=== PATIENT | female | born 1965 | race Caucasian/White ===

== ENCOUNTER → 2016-09-12 | Outpatient (CLI) | payer OTHER ==
[~2016-09-12] MED LIST: CHOL20009 PO; CRY28 PO; ESOM20CA PO; LSN/10125 PO; MRLP17X PO; [UNRECOGNIZED DRUG - CODE] TOP
== END | disposition home or self-care (01) ==
LOC: C.PAPS 10:26
PROVIDERS: ATTEND Obstetrics & Gynecology
DX: Z12.4 Encounter for screening for malignant neoplasm of cervix (principal)

== ENCOUNTER 2020-11-28 14:09 | Observation (INO) ==
[2020-11-28] MEDS ORDERED: ACETAMINOPHEN 325 MG TAB PO STA (15:03)
[2020-11-28] MEDS ORDERED: SODIUM CHLORIDE 0.9% 1000ML 1,000 ML IV ONE ×2 (15:03→17:36)
[2020-11-28] MEDS ORDERED: cefTRIAXone SODIUM 2,000 MG/70 ML BAG IV STA (15:05)
--- NOTE | 2020-11-28 15:15 | Emergency Department Note ---
History of Present Illness General Chief complaint: Fever Stated complaint: FEVER Time Seen by Provider: 11/28/20 14:50 Source: patient Mode of arrival: ambulatory Limitations: no limitations History of Present Illness Maximum Pain Intensity: 8 This patient is a 55-year-old previous healthy female comes in with a fever. She was out kayaking on and was in this little bit of the Sunday did not feel well. She is gotten worse since then she feels achy she had a temperature that started on Sunday up to 102. She has a headache when she has a fever her main complaint is severe low back pain it seems like it is bilateral but may be worse on the right. Denies dysuria or hematuria she has had some frequency at times. No cough. No tick bite or rash. She has been outside a lot however. She has had the Covid vaccine. She does feel shaky and has chills at times. No abdominal pain no neck pain or stiffness. She had not taken Tylenol today when she has Tylenol and the fever break she does feel better. Home Medications Medication Instructions Recorded Confirmed Type furosemide 20 mg tablet 20 mg PO QAM PRN 12/16/18 11/28/20 History multivitamin 1 tab PO QAM 11/28/20 11/28/20 History Allergies Allergy/AdvReac Type Severity Reaction Status Date / Time No Known Allergies Allergy Verified 11/28/20 16:40 Past Med/Surg History Medical History Atypical squamous cells cannot exclude high grade squamous intraepithelial lesion on cytologic smear of cervix (ASC-H) Back problem Benign neoplasm of cecum Endometriosis of pelvic peritoneum (10/25/10) Endometriosis of uterus (10/25/10) Female pelvic inflammatory disease (10/25/10) Pelvic pain Personal history of cervical dysplasia Vaginal cyst Surgical History History of colposcopy with cervical biopsy History of foot surgery History of loop electrical excision procedure (LEEP) History of oral surgery tooth extraction Family History Other No known problems Social History Smoking Status: Never smoker Preferred Language: Ecuadorean Feels Safe at Home: Yes Review of Systems A total of 10 systems reviewed and were otherwise negative Physical Exam Vital Signs Vital Signs - 24 hr 11/28/20 14:26 11/28/20 15:20 11/28/20 15:40 Temperature 39.2 C H Temperature Source Oral Pulse Rate 108 H 81 Pulse Rate from SpO2 Sensor 82 Respiratory Rate 20 14 Respiratory Effort / Characteristics Non-Labored Spontaneous Non-Labored Spontaneous Respiratory Depth Normal Respiratory Pattern Regular Blood Pressure 118/84 136/90 Blood Pressure Mean 95 105 Pulse Oximetry 97 98 99 Oxygen Delivery Method Room Air Room Air Sepsis Recent Fever Within 48 Hours No Sepsis New/Unexplained Change in Mental Status No Sepsis Action Taken by Nursing No Action Required 11/28/20 16:00 11/28/20 17:20 Temperature 39.4 C H Temperature Source Oral Pulse Rate 82 Pulse Rate from SpO2 Sensor 82 Respiratory Rate 15 Respiratory Effort / Characteristics Respiratory Depth Respiratory Pattern Blood Pressure 138/84 Blood Pressure Mean 102 Pulse Oximetry 100 Oxygen Delivery Method Sepsis Recent Fever Within 48 Hours Sepsis New/Unexplained Change in Mental Status Sepsis Action Taken by Nursing General: Well developed well nourished nontoxic mildly hard of hearing middle- age female who is otherwise in no acute distress, breathing comfortably on room air. Normal speech HEENT: Normal cephalic atraumatic. Pupils are equal round and reactive to light. Extraocular movements are intact. Oropharynx is pink with moist mucous membranes. No swelling of the mouth lips or tongue. Neck: Supple with a midline trachea. No meningeal signs or stiffness, no JVD or bruits. No Stridor. Chest: Clear to auscultation bilaterally. No wheezes or rhonchi. No increased work of breathing. Heart: Regular rate and rhythm without murmurs or gallops. Abdomen: Soft nontender, nondistended without rebound guarding or rigidity. Extremities: No cyanosis clubbing or edema. No calf tenderness or assymetry Spine/Back. Non tender to palpation. No CVA tenderness Skin: Good turgor without rashes. Neurologic exam: Cranial nerves two through 12 are intact. Motor and sensation are intact and symmetrical throughout. Course Administered Medications Discontinued Medications Acetaminophen (Acetaminophen 325 Mg Tab) 650 mg PO NOW STA Stop: 11/28/20 15:04 Last Admin: 11/28/20 15:36 Dose: 650 mg Documented by: [id number] Sodium Chloride (Nss 1000ml) 1,000 mls @ 999 mls/hr IV .Q1H1M ONE Stop: 11/28/20 16:03 Last Infusion: 11/28/20 17:26 Dose: 0 mls/hr Documented by: [id number] Admin: 11/28/20 15:36 Dose: 999 mls/hr Documented by: [id number] Ceftriaxone Sodium (Rocephin) 2,000 mg in 70 mls @ 140 mls/hr IV NOW STA Stop: 11/28/20 15:34 Last Infusion: 11/28/20 16:05 Dose: 0 mls/hr Documented by: [id number] Admin: 11/28/20 15:36 Dose: 140 mls/hr Documented by: [id number] Medical Decision Making Differential Diagnosis Sepsis, pneumonia, Covid, UTI, pyelonephritis, intra-abdominal process, tickborne illness, electrolyte or metabolic abnormality Medical Records Attestation: I reviewed the patient's medical records. Home Medications Current Medication List: was personally reviewed by me Laboratory Data Attestation: I reviewed the patient's lab results. Result diagrams: 11/28/20 15:20 11/28/20 15:20 Lab Results 11/28/20 11/28/20 11/28/20 Range/Units 15:20 15:20 15:20 WBC 4.58 L (4.8-10.8) K/uL RBC 4.59 (4.2-5.4) M/uL Hgb 13.6 (12.0-16.0) g/dL Hct 39.9 (37-47) % MCV 86.9 (80-100) fL MCH 29.6 (25-34) pg MCHC 34.1 (32-36) g/dL RDW Std Deviation 40.4 (36.4-46.3) fL RDW Coeff of Rebeca 12.6 (11.5-14.5) % Plt Count 147 (130-400) K/uL MPV 10.9 H (7.4-10.4) fL Immature Gran % (Auto) 0.2 % Neut % (Auto) 78.2 % Lymph % (Auto) 13.1 % Mccone % (Auto) 8.3 % Eos % (Auto) 0.0 % Baso % (Auto) 0.2 % Neut # (Auto) 3.58 (1.4-6.5) K/uL Lymph # (Auto) 0.60 L (1.2-3.4) K/uL Mccone # (Auto) 0.38 (0.11-0.59) K/uL Eos # (Auto) 0.00 (0-0.5) K/uL Baso # (Auto) 0.01 (0-0.2) K/uL Immature Gran # (Auto) 0.01 (0.00-0.02) K/uL PT 10.7 (9.0-12.0) Seconds INR 1.1 (0.9-1.1) APTT 29.6 (21.0-31.0) Seconds PTT Ratio 1.1 Sodium 138 (136-145) mmol/L Potassium 3.8 (3.5-5.1) mmol/L Chloride 104 (98-107) mmol/L Carbon Dioxide 24 (21-32) mmol/L Anion Gap 9.0 (3-11) BUN 11 (7-18) mg/dl Creatinine 0.75 (0.6-1.2) mg/dl Est Cr Clr Drug Dosing 84.9 ml/min Est GFR ( Amer) 103.3 ml/min Est GFR (Non-Af Amer) 89.1 ml/min BUN/Creatinine Ratio 14.5 (10-20) Glucose 111 H (70-99) mg/dl Lactate (0.4-2.0) mmol/L Calcium 9.0 (8.5-10.1) mg/dl Magnesium 1.9 (1.8-2.4) mg/dl Total Bilirubin 1.0 (0.2-1) mg/dl AST 34 (15-37) U/L ALT 50 (12-78) U/L Alkaline Phosphatase 75 (45-117) U/L Total Protein 7.4 (6.4-8.2) gm/dl Albumin 3.7 (3.4-5.0) gm/dl Globulin 3.7 (2.5-4.0) gm/dl Albumin/Globulin Ratio 1.0 (0.9-2) Urine Color Urine Appearance (Clear) Urine pH (4.5-7.5) Ur Specific [place] (1.000-1.030) Urine Protein (Negative) Urine Glucose (UA) (Negative) Urine Ketones (Negative) Urine Blood (Negative) Urine Nitrite (Negative) Urine Bilirubin (Negative) Urine Urobilinogen (Negative) Ur Leukocyte Esterase (Negative) Urine WBC (Auto) (0-5) /hpf Urine RBC (Auto) (0-4) /hpf U Hyaline Cast (Auto) (0-5) /lpf U Epithel Cells (Auto) (0-5) /lpf Urine Bacteria (Auto) (Negative) Anaplasma Smear See Comment Lyme Disease IgG Ab (Negative) Lyme Disease IgM Ab (Negative) COVID-19 Eval Order SARS-CoV-2 (PCR) (Negative) 11/28/20 11/28/20 11/28/20 Range/Units 15:20 15:25 15:25 WBC (4.8-10.8) K/uL RBC (4.2-5.4) M/uL Hgb (12.0-16.0) g/dL Hct (37-47) % MCV (80-100) fL MCH (25-34) pg MCHC (32-36) g/dL RDW Std Deviation (36.4-46.3) fL RDW Coeff of Rebeca (11.5-14.5) % Plt Count (130-400) K/uL MPV (7.4-10.4) fL Immature Gran % (Auto) % Neut % (Auto) % Lymph % (Auto) % Mccone % (Auto) % Eos % (Auto) % Baso % (Auto) % Neut # (Auto) (1.4-6.5) K/uL Lymph # (Auto) (1.2-3.4) K/uL Mccone # (Auto) (0.11-0.59) K/uL Eos # (Auto) (0-0.5) K/uL Baso # (Auto) (0-0.2) K/uL Immature Gran # (Auto) (0.00-0.02) K/uL PT (9.0-12.0) Seconds INR (0.9-1.1) APTT (21.0-31.0) Seconds PTT Ratio Sodium (136-145) mmol/L Potassium (3.5-5.1) mmol/L Chloride (98-107) mmol/L Carbon Dioxide (21-32) mmol/L Anion Gap (3-11) BUN (7-18) mg/dl Creatinine (0.6-1.2) mg/dl Est Cr Clr Drug Dosing ml/min Est GFR ( Amer) ml/min Est GFR (Non-Af Amer) ml/min BUN/Creatinine Ratio (10-20) Glucose (70-99) mg/dl Lactate 0.7 (0.4-2.0) mmol/L Calcium (8.5-10.1) mg/dl Magnesium (1.8-2.4) mg/dl Total Bilirubin (0.2-1) mg/dl AST (15-37) U/L ALT (12-78) U/L Alkaline Phosphatase (45-117) U/L Total Protein (6.4-8.2) gm/dl Albumin (3.4-5.0) gm/dl Globulin (2.5-4.0) gm/dl Albumin/Globulin Ratio (0.9-2) Urine Color Dark Yellow Urine Appearance Clear (Clear) Urine pH 5.0 (4.5-7.5) Ur Specific [place] 1.029 (1.000-1.030) Urine Protein Trace H (Negative) Urine Glucose (UA) Negative (Negative) Urine Ketones Trace H (Negative) Urine Blood 1+ H (Negative) Urine Nitrite Negative (Negative) Urine Bilirubin Negative (Negative) Urine Urobilinogen Negative (Negative) Ur Leukocyte Esterase Trace H (Negative) Urine WBC (Auto) 5-10 H (0-5) /hpf Urine RBC (Auto) 0-4 (0-4) /hpf U Hyaline Cast (Auto) 1-5 (0-5) /lpf U Epithel Cells (Auto) >30 H (0-5) /lpf Urine Bacteria (Auto) Negative (Negative) Anaplasma Smear Lyme Disease IgG Ab Negative (Negative) Lyme Disease IgM Ab Negative (Negative) COVID-19 Eval Order SARS-CoV-2 (PCR) (Negative) 11/28/20 11/28/20 Range/Units 15:50 15:50 WBC (4.8-10.8) K/uL RBC (4.2-5.4) M/uL Hgb (12.0-16.0) g/dL Hct (37-47) % MCV (80-100) fL MCH (25-34) pg MCHC (32-36) g/dL RDW Std Deviation (36.4-46.3) fL RDW Coeff of Rebeca (11.5-14.5) % Plt Count (130-400) K/uL MPV (7.4-10.4) fL Immature Gran % (Auto) % Neut % (Auto) % Lymph % (Auto) % Mccone % (Auto) % Eos % (Auto) % Baso % (Auto) % Neut # (Auto) (1.4-6.5) K/uL Lymph # (Auto) (1.2-3.4) K/uL Mccone # (Auto) (0.11-0.59) K/uL Eos # (Auto) (0-0.5) K/uL Baso # (Auto) (0-0.2) K/uL Immature Gran # (Auto) (0.00-0.02) K/uL PT (9.0-12.0) Seconds INR (0.9-1.1) APTT (21.0-31.0) Seconds PTT Ratio Sodium (136-145) mmol/L Potassium (3.5-5.1) mmol/L Chloride (98-107) mmol/L Carbon Dioxide (21-32) mmol/L Anion Gap (3-11) BUN (7-18) mg/dl Creatinine (0.6-1.2) mg/dl Est Cr Clr Drug Dosing ml/min Est GFR ( Amer) ml/min Est GFR (Non-Af Amer) ml/min BUN/Creatinine Ratio (10-20) Glucose (70-99) mg/dl Lactate (0.4-2.0) mmol/L Calcium (8.5-10.1) mg/dl Magnesium (1.8-2.4) mg/dl Total Bilirubin (0.2-1) mg/dl AST (15-37) U/L ALT (12-78) U/L Alkaline Phosphatase (45-117) U/L Total Protein (6.4-8.2) gm/dl Albumin (3.4-5.0) gm/dl Globulin (2.5-4.0) gm/dl Albumin/Globulin Ratio (0.9-2) Urine Color Urine Appearance (Clear) Urine pH (4.5-7.5) Ur Specific [place] (1.000-1.030) Urine Protein (Negative) Urine Glucose (UA) (Negative) Urine Ketones (Negative) Urine Blood (Negative) Urine Nitrite (Negative) Urine Bilirubin (Negative) Urine Urobilinogen (Negative) Ur Leukocyte Esterase (Negative) Urine WBC (Auto) (0-5) /hpf Urine RBC (Auto) (0-4) /hpf U Hyaline Cast (Auto) (0-5) /lpf U Epithel Cells (Auto) (0-5) /lpf Urine Bacteria (Auto) (Negative) Anaplasma Smear Lyme Disease IgG Ab (Negative) Lyme Disease IgM Ab (Negative) COVID-19 Eval Order Covid19 at [facility] SARS-CoV-2 (PCR) NEGATIVE (Negative) Imaging Data Attestation: I personally reviewed and interpreted this imaging study as follows: My Impression: Chest x-rayno acute infiltrate, failure, pneumothorax seen Radiologist's Impression: Chest X-Ray 11/28/20 15:03 XR chest 1V portable CLINICAL HISTORY: SEPSIS COMPARISON STUDY: No previous studies for comparison. FINDINGS: Lung volumes are normal. Lungs are clear. There is no pneumothorax or pleural effusion. Cardiac size is normal. Mediastinal contours are normal. There is no evidence for pulmonary edema. IMPRESSION: No acute cardiopulmonary findings. ACT 112: Negative or not required by law. Electronically signed by: Heladio Kaur M.D. 11/28/2020 3:51 PM Abdomen/Pelvis CT 11/28/20 16:22 CT OF THE ABDOMEN AND PELVIS WITHOUT CONTRAST CLINICAL HISTORY: back pain, fever COMPARISON STUDY: CT of the abdomen and pelvis May 18, 2015. Pelvic ultrasound May 04, 2020. TECHNIQUE: Axial images of the abdomen and pelvis were obtained without IV contrast. Images were reviewed in the axial, sagittal, and coronal planes. Automated exposure control was utilized for the study. A dose lowering technique was utilized adhering to the principles of ALARA. FINDINGS: Lung bases are unremarkable. No renal, ureteral or bladder calculi are present. No hydronephrosis or hydroureter. Size of the spleen is at the upper limits of normal. Evaluation of the remainder of the abdomen and pelvis is suboptimal as unenhanced examination. Hepatic steatosis is noted. A right hepatic lobe hemangioma is similar to CT of May 2015. This is benign. There is no biliary or pancreatic ductal dilatation. There is no peripancreatic or pericholecystic infiltration. No acute fracture is identified within visualized skeletal structures. There is no evidence for acute appendicitis. There is trace fluid within the pelvis. No abscess is present. There is no lymphadenopathy. IMPRESSION: 1. No urinary calculi or hydronephrosis. 2. No acute process within the abdomen or pelvis on unenhanced exam. 3. Hepatic steatosis. ACT 112: Negative or not required by law. Electronically signed by: Heladio Kaur M.D. 11/28/2020 4:55 PM ECG Data Attestation: I personally reviewed and interpreted this ECG as follows: Indication: + other (Sepsis/infection) Rhythm: + normal sinus ECG Intervals/blocks: + Normal QRS, + Normal QT and + Normal CO ECG [place]: + Normal ECG ST segments: + Normal ST segments ECG Findings: no PACs or no PVCs Comparison ECG Date: from (10/12/2010) Change: no significant change MDM Narrative This patient comes in as described above. She was placed on a engine monitor room A4. She is here for treatment evaluation after having a fever and back pain. IV access was established and she was hydrated with IV 2 L normal saline bolus. She was also given Rocephin 2 g IV. Multiple blood testing was obtained. She has no significant elevation of her white count in fact is on the low side. She has no elevation of her lactic acid. She has no significant electrolyte or metabolic abnormalities. She has nothing to suggest liver, gallbladder, or pancreas disease. Her initial anaplasmosis and Lyme testing are negative as well. CAT scan was obtained and there is no acute abnormality seen. Her urinalysis is mildly abnormal but does not suggest a definite UTI. That could potentially still be the source or could be viral. Covid testing was negative. She has a mild headache but she says is nothing like her typical migraines is not severe she looks well she is nontoxic she has no meningeal signs or stiffness I do not feel this is likely meningitis or encephalitis. Despite getting Tylenol 650 mg p.o. here, fever was up so I gave her ibuprofen 400 mg. She has been in the water canoeing and is possibly there could be some sort of infectious etiology from the water. I have consulted [facility] to see her in the ER for admission and observation. Continuous cardiac monitoring. An order was placed in EMR for continuous cardiac monitoring. Upon my evaluation she was noted to be in normal sinus rhythm with a rate of 80 Impression & Plan Sepsis, Fever, Back pain, Lab test negative for COVID-19 virus Discharge Plan Visit Data Chief Complaint: Fever Stated Complaint: FEVER ED Provider: Tomi Mcpherson Discharge Problem: Sepsis, Fever, Back pain, Lab test negative for COVID-19 virus Forms Stand Alone Forms: My [facility] Prescriptions Prescriptions: No Action furosemide 20 mg Tablet 20 mg PO QAM PRN (Reason: Edema) RF: 0 multivitamin Tablet 1 tab PO QAM RF: 0 Referrals Referrals: Anish Ricardo MD [Primary Care Provider] - Discharge Problem: Sepsis Qualifiers: Sepsis type: sepsis due to unspecified organism Sepsis acute organ dysfunction status: unspecified Qualified Code(s): A41.9 - Sepsis, unspecified organism Fever Qualifiers: Fever type: unspecified Qualified Code(s): R50.9 - Fever, unspecified Back pain Qualifiers: Back pain location: low back pain Chronicity: acute Back pain laterality: bilateral Sciatica presence: without sciatica Qualified Code(s): M54.5 - Low back pain
[2020-11-28 15:39] LABS: Basophils # (auto) 0.01 K/uL (0-0.2); Basophils % (auto) 0.2 %; Hematocrit (blood only) 39.9 % (37-47); Hemoglobin 13.6 g/dL (12.0-16.0); Immature Granulocytes # (auto) 0.01 K/uL (0.00-0.02); Immature Granulocytes % (auto) 0.2 %; Lymphocytes % (auto) 13.1 %; Mean Corpuscular Hemoglobin 29.6 pg (25-34); Mean Corpuscular Hgb Conc 34.1 g/dL (32-36); Mean Corpuscular Volume 86.9 fL (80-100); Mean Platelet Volume 10.9 fL (7.4-10.4); Monocytes # (auto) 0.38 K/uL (0.11-0.59); Monocytes % (auto) 8.3 %; Neutrophils # (auto) 3.58 K/uL (1.4-6.5); Neutrophils % (auto) 78.2 %; Platelet Count 147 K/uL (130-400); RDW Coefficient of Variation 12.6 % (11.5-14.5); RDW Standard Deviation 40.4 fL (36.4-46.3); Red Blood Count 4.59 M/uL (4.2-5.4); White Blood Count 4.58 K/uL (4.8-10.8)
--- NOTE | 2020-11-28 15:52 | XRay Report ---
XR chest 1V portable CLINICAL HISTORY: SEPSIS COMPARISON STUDY: No previous studies for comparison. FINDINGS: Lung volumes are normal. Lungs are clear. There is no pneumothorax or pleural effusion. Car diac size is normal. Mediastinal contours are normal. There is no evidence for pulmonary edema. IMPRESSION: No acute cardiopulmonary findings. ACT 112: Negative or not required by law. Electronically signed by: Heladio Kaur M.D. 11/28/2020 3:51 PM
[2020-11-28 16:00] LABS: Appearance Urine Clear (Clear); Bacteria Urine Automated Negative (Negative); Bilirubin Urine Negative (Negative); Blood Urine 1+ (Negative); Color Urine Dark Yellow; Epithelial Cell Urine Auto >30 /lpf (0-5); Glucose Urine UA Negative (Negative); Ketones Urine Trace (Negative); Leukocyte Esterase Urine Trace (Negative); Nitrite Urine Negative (Negative); Protein Urine Trace (Negative); Specific Gravity Urine 1.029 (1.000-1.030); Urobilinogen Urine Negative (Negative)
[2020-11-28 16:02] LABS: Albumin Level 3.7 gm/dl (3.4-5.0); BUN Creatinine Ratio 14.5 (10-20); Creatinine Clr Calc Pharmacy 84.9 ml/min; Est GFR (African American) 103.3 ml/min; Est GFR (Non-African American) 89.1 ml/min; Magnesium 1.9 mg/dl (1.8-2.4); Potassium 3.8 mmol/L (3.5-5.1)
[2020-11-28 16:05] LABS: Globulin 3.7 gm/dl (2.5-4.0); Total Protein 7.4 gm/dl (6.4-8.2)
[2020-11-28 16:07] LABS: INR 1.1 (0.9-1.1); Partial Thromboplastin Ratio 1.1; Partial Thromboplastin Time 29.6 Seconds (21.0-31.0); Prothrombin Time 10.7 Seconds (9.0-12.0)
[2020-11-28 16:43] LABS: Lyme Ab IgG w/WB Rflx Negative (Negative); Lyme Ab IgM w/WB Rflx Negative (Negative)
[2020-11-28 16:46] LABS: RBC Urine Automated 0-4 /hpf (0-4)
--- NOTE | 2020-11-28 16:56 | CT Scan Report ---
CT OF THE ABDOMEN AND PELVIS WITHOUT CONTRAST CLINICAL HISTORY: back pain, fever COMPARISON STUDY: CT of the abdomen and pelvis May 18, 2015. Pelvic ultrasound May 04, 2020. TECHNIQUE: Axial images of the abdomen and pelvis were obtained without IV contrast. Images were revi ewed in the axial, sagittal, and coronal planes. Automated exposure control was utilized for the alexander dy. A dose lowering technique was utilized adhering to the principles of ALARA. FINDINGS: Lung bases are unremarkable. No renal, ureteral or bladder calculi are present. No hydronep hrosis or hydroureter. Size of the spleen is at the upper limits of normal. Evaluation of the remaind er of the abdomen and pelvis is suboptimal as unenhanced examination. Hepatic steatosis is noted. A r ight hepatic lobe hemangioma is similar to CT of May 2015. This is benign. There is no biliary or pancreatic ductal dilatation. There is no peripancreatic or pericholecystic infiltration. No acute f racture is identified within visualized skeletal structures. There is no evidence for acute appendici tis. There is trace fluid within the pelvis. No abscess is present. There is no lymphadenopathy. IMPRESSION: 1. No urinary calculi or hydronephrosis. 2. No acute process within the abdomen or pelvis on unenhanced exam. 3. Hepatic steatosis. ACT 112: Negative or not required by law. Electronically signed by: Heladio Kaur M.D. 11/28/2020 4:55 PM
[2020-11-28] MEDS ORDERED: IBUPROFEN 200 MG TAB PO STA (17:34)
--- NOTE | 2020-11-28 19:33 | History & Physical Report ---
Date of Service November 28, 2020 Assessment & Plan (1) Febrile illness, acute: (2) Back pain: Plan: This is a 55-year-old otherwise healthy and active female who presents to ER for evaluation secondary to fever and ill feeling x4 days. In ED sepsis not entirely ruled out, although does not meet criteria on admission. She is febrile with a temp of 39.4 and has had intermittent heart rates greater than 90, but currently heart rate 90. Her WBC 4.58k. UA appears negative. Blood cultures pending and anaplasma pending. Admit to med tele Continue IV rocephin, add oral doxy until cultures return prn APAP for fever/sob, supportive and symptomatic care await blood, urine cultures and anaplasma Doubt meningitis, no meningismus, slight SETH but resolved with drinking caffeine if fever persists consider echo and MRI lumbar spine NSS + 20meq kcl x 1 additional L covid negative, fully vaccinated with moderna DVT ppx: Lovenox DISPO: med tele PCP: Davion Pt was seen and examined in collaboration with Dr. Gaona, please see addendum History of Present Illness Chief Complaint: Fever and ill feeling x4 days. Primary Care Provider: Anish Ricardo MD This is a very active 55-year-old otherwise healthy female who presents to ER secondary to fever and ill feeling x4 days. Approximately 4 days ago she started feeling ill, myalgias, chills and sweats. She is very active and fishes a lot with her . On she was out fishing when she began feeling unwell and retreated to home. When she woke up on Sunday she felt half decent so they went back out fishing and prison through her day again she felt ill, myalgias, chills, sweats and headache. When she woke up on Sunday she decided to take her temperature which was 102. Over the past 24 hours she has had temperatures fluctuate between 102 and 104. She has tried Tylenol which alleviates a temperature to 100. Currently she does complain of a dull right- sided frontal headache. She denies any phonophobia or photophobia. She does have a past history of migraines prior to menopause. This does not feel significant like that. She also complains of mild neck stiffness but is able to have active range of motion of neck. She denies any sick contacts. Any new or upper respiratory symptoms including stuffy nose, runny nose, cough, hemoptysis, chest pain, shortness of breath, nausea, vomiting, abdominal pain, dysuria, increased urgency or frequency with urination, hematuria or diarrhea. She denies any known tick bites or rashes. She is very active and is outdoors. Overall her appetite has been normal and she is currently requesting something to eat. She feels her headache is likely related to not having any caffeine all day as she is a heavy coffee drinker. She also complains of low back pain, middle of her low back to the right that is constant. She has had this pain off and on for many years but has gotten worse since feeling sick. In ED she remained hemodynamically stable with a febrile at 39.4. Her CBC was generally unremarkable except for mild leukopenia at 4.58k. Her CMP was unremarkable. Urinalysis was not consistent with infection. Lyme and Covid screen was negative. Anaplasma still pending. Chest x-ray was negative for acute abnormality.CT abdomen pelvis revealed hepatic steatosis but otherwise no acute abnormality. She did receive 2 g of IV Rocephin empirically in ED. Allergies Allergy/AdvReac Type Severity Reaction Status Date / Time No Known Allergies Allergy Verified 11/28/20 16:40 Home Medications Medication Instructions Recorded Confirmed Type furosemide 20 mg tablet 20 mg PO QAM PRN 12/16/18 11/28/20 History multivitamin 1 tab PO QAM 11/28/20 11/28/20 History doxycycline hyclate 100 mg capsule 100 mg PO BID 8 Days #16 cap 11/30/20 Rx Past Med/Surg History Medical History Atypical squamous cells cannot exclude high grade squamous intraepithelial lesion on cytologic smear of cervix (ASC-H) Back problem Benign neoplasm of cecum Endometriosis of pelvic peritoneum (10/25/10) Endometriosis of uterus (10/25/10) Female pelvic inflammatory disease (10/25/10) Pelvic pain Personal history of cervical dysplasia Vaginal cyst Surgical History History of colposcopy with cervical biopsy History of foot surgery History of loop electrical excision procedure (LEEP) History of oral surgery tooth extraction Family History (Updated 11/28/20 @ 19:32 by Rachel Mendoza PA-C) Father Lung cancer Mother Throat cancer Other No known problems Social History (Updated 11/28/20 @ 19:32 by Rachel Mendoza PA-C) Smoking Status: Former smoker Second Hand Exposure: No; Do You Dip or Chew Tobacco: No; Tobacco Cessation Education Requested by Patient: No Hx Alcohol Use: No Hx Substance Use: No Preferred Language: Korean Communication Ability: Effective Locomotive [employer]il[employer] Required: No Beliefs That Will Affect Care: None marital status: Current Living Situation: Spouse Other Information That Helps Us Care for You: No Feels Safe at Home: Yes Safety Concerns: Feels Safe At This Time Assistive Devices: None Review of Systems Review of Systems: All systems reviewed & are unremarkable except as noted in HPI & below Physical Exam Physical Exam: Constitutional: WD/WN, appears acutely ill but nontoxic, vitals as above, NAD, sitting up in bed, pleasant, conversing easily Head: Normocephalic, Atraumatic, active range of motion to neck, negative Kernig's and negative Brudzinski's Eyes: PERRL, conjunctivae normal, anicteric sclerae ENMT: external ear and nose normal, oropharynx normal Neck: trachea midline, no thyromegaly normal visual inspection Respiratory: normal respiratory effort, lungs clear to auscultation, no wheeze, rales, rhonchi. Normal insp/exp effort, no accessory muscle use Cardiovascular: RRR, no murmur, no edema Vessels: no JVD or carotid bruit Chest: normal inspection of chest Abdomen: normal bowel sounds, soft, nontender, no hepatosplenomegaly Musculoskeletal: no cyanosis or clubbing, extremities motor strength 5/5 Skin: no rashes, warm and dry normal turgor Neurologic: PERRL, EOMI, accommodation nl, no face palsy, no dysarthria CN's II-XI intact bilaterally and moves all extremities Psychiatric: A+Ox3, euthymic affect Lymphatic: no cervical or axillary lymphadenopathy : deferred Results & Data Results & Data ([facility]) Vital Signs (Past 12 Hours) Vital Signs Temp Pulse Resp BP Pulse Ox 11/28/20 19:24 39.4 C H 11/28/20 19:00 90 16 137/84 99 11/28/20 18:40 93 H 20 98 11/28/20 17:20 39.4 C H 11/28/20 17:06 92 H 17 98 11/28/20 16:00 82 15 138/84 100 11/28/20 15:40 81 14 136/90 99 11/28/20 15:20 98 11/28/20 14:26 39.2 C H 108 H 20 118/84 97 Diagnostic Findings Chest X-Ray 11/28/20 15:03 XR chest 1V portable CLINICAL HISTORY: SEPSIS COMPARISON STUDY: No previous studies for comparison. FINDINGS: Lung volumes are normal. Lungs are clear. There is no pneumothorax or pleural effusion. Cardiac size is normal. Mediastinal contours are normal. There is no evidence for pulmonary edema. IMPRESSION: No acute cardiopulmonary findings. ACT 112: Negative or not required by law. Electronically signed by: Heladio Kaur M.D. 11/28/2020 3:51 PM Abdomen/Pelvis CT 11/28/20 16:22 CT OF THE ABDOMEN AND PELVIS WITHOUT CONTRAST CLINICAL HISTORY: back pain, fever COMPARISON STUDY: CT of the abdomen and pelvis May 18, 2015. Pelvic ultrasound May 04, 2020. TECHNIQUE: Axial images of the abdomen and pelvis were obtained without IV contrast. Images were reviewed in the axial, sagittal, and coronal planes. Automated exposure control was utilized for the study. A dose lowering technique was utilized adhering to the principles of ALARA. FINDINGS: Lung bases are unremarkable. No renal, ureteral or bladder calculi are present. No hydronephrosis or hydroureter. Size of the spleen is at the upper limits of normal. Evaluation of the remainder of the abdomen and pelvis is suboptimal as unenhanced examination. Hepatic steatosis is noted. A right hepatic lobe hemangioma is similar to CT of May 2015. This is benign. There is no biliary or pancreatic ductal dilatation. There is no peripancreatic or pericholecystic infiltration. No acute fracture is identified within visualized skeletal structures. There is no evidence for acute appendicitis. There is trace fluid within the pelvis. No abscess is present. There is no lymphadenopathy. IMPRESSION: 1. No urinary calculi or hydronephrosis. 2. No acute process within the abdomen or pelvis on unenhanced exam. 3. Hepatic steatosis. ACT 112: Negative or not required by law. Electronically signed by: Heladio Kaur M.D. 11/28/2020 4:55 PM Medications Administered Medication List Discontinued Medications Acetaminophen (Acetaminophen 325 Mg Tab) 650 mg PO NOW STA Stop: 11/28/20 15:04 Last Admin: 11/28/20 15:36 Dose: 650 mg Documented by: [id number] Sodium Chloride (Nss 1000ml) 1,000 mls @ 999 mls/hr IV .Q1H1M ONE Stop: 11/28/20 16:03 Last Infusion: 11/28/20 17:26 Dose: 0 mls/hr Documented by: [id number] Admin: 11/28/20 15:36 Dose: 999 mls/hr Documented by: [id number] Ceftriaxone Sodium (Rocephin) 2,000 mg in 70 mls @ 140 mls/hr IV NOW STA Stop: 11/28/20 15:34 Last Infusion: 11/28/20 16:05 Dose: 0 mls/hr Documented by: [id number] Admin: 11/28/20 15:36 Dose: 140 mls/hr Documented by: [id number] Sodium Chloride (Nss 1000ml) 1,000 mls @ 999 mls/hr IV .Q1H1M ONE Stop: 11/28/20 18:36 Last Admin: 11/28/20 18:41 Dose: 999 mls/hr Documented by: [id number] Ibuprofen (Ibuprofen 200 Mg Tab) 400 mg PO NOW STA Stop: 11/28/20 17:35 Last Admin: 11/28/20 18:40 Dose: 400 mg Documented by: [id number] ECG Rate (beats per minute): 83 Rhythm: normal sinus COVID-19 Results Results COVID-19 Adm Lab Results: RBC 4.59 M/uL (4.2-5.4) 11/28/20 WBC 4.58 K/uL (4.8-10.8) L 11/28/20 Hgb 13.6 g/dL (12.0-16.0) 11/28/20 Hct 39.9 % (37-47) 11/28/20 Plt Count 147 K/uL (130-400) 11/28/20 Neutrophils (%) (Auto) 78.2 % 11/28/20 Lymphocytes (%) (Auto) 13.1 % 11/28/20 Monocytes # (Auto) 0.38 K/uL (0.11-0.59) 11/28/20 Eosinophils # (Auto) 0.00 K/uL (0-0.5) 11/28/20 Immature Granulocyte % (Auto) 0.2 % 11/28/20 Neutrophils # (Auto) 3.58 K/uL (1.4-6.5) 11/28/20 Lymphocytes # (Auto) 0.60 K/uL (1.2-3.4) L 11/28/20 Monocytes # (Auto) 0.38 K/uL (0.11-0.59) 11/28/20 Eosinophils # (Auto) 0.00 K/uL (0-0.5) 11/28/20 Basophils # (Auto) 0.01 K/uL (0-0.2) 11/28/20 Immature Granulocyte # (Auto) 0.01 K/uL (0.00-0.02) 11/28/20 Na 138 mmol/L (136-145) 11/28/20 K 3.8 mmol/L (3.5-5.1) 11/28/20 Cl 104 mmol/L (98-107) 11/28/20 CO2 24 mmol/L (21-32) 11/28/20 Anion Gap 9.0 (3-11) 11/28/20 BUN 11 mg/dl (7-18) 11/28/20 Creatinine 0.75 mg/dl (0.6-1.2) 11/28/20 BUN/Creatinine Ratio 14.5 (10-20) 11/28/20 Glucose Level 111 mg/dl (70-99) H 11/28/20 Ca 9.0 mg/dl (8.5-10.1) 11/28/20 Total Bilirubin 1.0 mg/dl (0.2-1) 11/28/20 AST/SGOT 34 U/L (15-37) 11/28/20 ALT/SGPT 50 U/L (12-78) 11/28/20 Alkaline Phosphatase 75 U/L (45-117) 11/28/20 Total Protein 7.4 gm/dl (6.4-8.2) 11/28/20 Albumin 3.7 gm/dl (3.4-5.0) 11/28/20 Globulin 3.7 gm/dl (2.5-4.0) 11/28/20 Albumin/Globulin Ratio 1.0 (0.9-2) 11/28/20 Procalcitonin 0.23 ng/ml (0-0.5) 11/28/20 PTT 29.6 Seconds (21.0-31.0) 11/28/20 INR 1.1 (0.9-1.1) 11/28/20 COVID-19 PCR NEGATIVE (Negative) 11/28/20 Chest X-Ray 11/28/20 Code Status & VTE Plan Code Status FULL CODE VTE Prophylaxis Plan VTE Prophylaxis will be ordered: Yes Supervising Physician Co-Signing Physician Notes Pt was seen and examined. Agreed with Rachel RIVAS exam, assessment and plan. 55-year-old female very active with no significant PMH presents to ER secondary to fever. Pt has been having fever for the last 4 days associated with myalgias, chills and sweats. She said that on she was out fishing, but when she got home she said that she felt ill. She said that since she has been back from the fishing trip that she has been having recurrent episodes of fever. She said that she checked her temperature that was 102. She said that she has right sided frontal headache. She denies any phonophobia, photophobia, but mild neck stiffness. She denies any recent tick bites. In ED she was found to be febrile at 39.4. WBC 4.58k. Lyme and Covid 19 screen was negative. Anaplasma still pending. Chest x-ray was negative for acute abnormality.CT abdomen pelvis revealed hepatic steatosis but otherwise no acute abnormality. She received IV Rocephin empirically in ED. Blood cx collected in the ER pending. Will add doxycycline 100mg BID. Will monitor closely during the hospital course. MD [place] (1) Back pain Back pain laterality: bilateral Back pain location: low back pain Chronicity: acute Sciatica presence: without sciatica Qualified Code(s): M54.5 - Low back pain
[2020-11-28] MEDS ORDERED: ONDANSETRON INJ 2 MG/ML 2 ML VIAL IV PRN (19:58)
[2020-11-28] MEDS ORDERED: ALUMINUM/MAGNESIUM SUSP 30 ML UDC PO PRN (19:58)
[2020-11-28] MEDS ORDERED: POLYETHYLENE (MIRALAX) 17 GM PACK PO PRN (19:58)
[2020-11-28] MEDS ORDERED: MAGNESIUM HYDROXIDE SUSP 30 ML UDC PO PRN (19:58)
[2020-11-28] MEDS ORDERED: NSS + 20MEQ KCL 20 MEQ/1,000 ML BAG IV SCH (20:30)
[2020-11-28] MEDS ORDERED: diphenhydrAMINE Capsule 25 MG CAP PO ONE (20:36)
[2020-11-28] MEDS: DOXYCYCLINE HYCLATE 100 MG CAP PO SCH (21:00)
[2020-11-28] MEDS: ENOXAPARIN INJ 40 MG/0.4 ML SYR SQ SCH (21:01)
[2020-11-28] MEDS: ACETAMINOPHEN 325 MG TAB PO PRN (21:01)
[2020-11-29] MEDS: cefTRIAXone SODIUM 2,000 MG in DEXTROSE 5% 50 ML IV SCH (08:05)
[2020-11-29] MEDS: ACETAMINOPHEN 325 MG TAB PO PRN ×2 (08:06→20:36)
[2020-11-29] MEDS: DOXYCYCLINE HYCLATE 100 MG CAP PO SCH ×2 (08:08→20:37)
--- NOTE | 2020-11-29 13:16 | Electrocardiogram Report ---
Test Reason : Blood Pressure : / mmHG Vent. Rate : 083 BPM Atrial Rate : 083 BPM P-R Int : 116 ms QRS Dur : 084 ms QT Int : 348 ms P-R-T Axes : 046 -01 021 degrees QTc Int : 408 ms Normal sinus rhythm Normal ECG When compared with ECG of 19-OCT-2010 12:45, T wave amplitude has decreased in Anterolateral leads Confirmed by Shon You ([id number]) on 11/29/2020 1:15:38 PM Referred By: REFERRED SELF Confirmed By:Shon You
--- NOTE | 2020-11-29 17:49 | Hospitalist Progress Note ---
Date of Service November 29, 2020 Assessment & Plan (1) Febrile illness, acute: (2) Back pain: Plan: This is a 55-year-old otherwise healthy and active female who presents to ER for evaluation secondary to fever and ill feeling x4 days. Unknown etiology Temp Max 39.4 on admission WBC 4.58K on admission CXR negative and UA negative Blood cx no growth preliminary Peripheral smear showed no evidence of anaplasmosis Anaplasmosis PCR pending Continue IV Rocephin and PO doxycycline back pain improves Will follow blood cx Clinically improves DVT ppx: Lovenox DISPO Possible discharge home tomorrow Admission and Anticipated Discharge Date Admission Date: November 28, 2020 Subjective Pt was seen and examined for follow up of fever Lying in bed with no distress Pt aid that she feels much better She said that she does not have any headache She has been afebrile since last night She has been walking in the hallway with no distress Denies any chest pain, palpitation, dizziness and SOB Physical Exam Physical Exam: General- No acute distress Head- atraumatic Eyes- PERRL, EOMI, ENT- oropharynx clear Neck- supple, no JVD Lungs- clear to auscultation Heart- regular rhythm; no murmur Abdomen- normal bowel sounds, soft, nontender Extremities- no calf tenderness Neuro- alert, oriented x 3; PERRL, EOMI; no facial palsy; no dysarthria Skin- warm & dry Results & Data Results & Data ([facility]) Vital Signs (Past 12 Hours) Vital Signs Temp Pulse Pulse Resp BP Pulse Ox 11/29/20 15:26 80 11/29/20 15:00 36.8 C 74 18 134/87 97 11/29/20 11:08 37.3 C 68 18 112/74 98 11/29/20 07:00 37.8 C H 77 18 123/80 97 11/29/20 06:21 82 (1) Back pain Back pain laterality: bilateral Back pain location: low back pain Chronicity: acute Sciatica presence: without sciatica Qualified Code(s): M54.5 - Low back pain
[2020-11-29] MEDS: ENOXAPARIN INJ 40 MG/0.4 ML SYR SQ SCH (20:40)
[2020-11-30] MEDS: DOXYCYCLINE HYCLATE 100 MG CAP PO SCH (09:18)
[2020-11-30] MEDS: cefTRIAXone SODIUM 2,000 MG in DEXTROSE 5% 50 ML IV SCH (09:20)
--- NOTE | 2020-11-30 16:06 | Hospitalist Progress Note ---
Date of Service November 30, 2020 Assessment & Plan (1) Febrile illness, acute: (2) Back pain: Plan: This is a 55-year-old otherwise healthy and active female who presents to ER for evaluation secondary to fever and ill feeling x4 days. Mostly due to insect (tick) bite because she has redness around her L axilla area that looks like tick bites Temp Max 39.4 on admission WBC 4.58K on admission CXR negative and UA negative Blood cx no growth preliminary Peripheral smear showed no evidence of anaplasmosis Anaplasmosis PCR pending Lyme titer negative Blood cx negative Currently on IV Rocephin and PO doxycycline back pain resolved Will continue treat for anaplasmosis pathogen due to possible insect bite seen in L axilla area Will complete 10 days course of Doxycycline If pt remains afebrile for 24 hrs, will discharge home later DVT ppx: Lovenox DISPO Possible discharge home later Admission and Anticipated Discharge Date Admission Date: November 28, 2020 Subjective Pt was seen and examined for follow up of fever Lying in bed with no distress Pt aid that she feels much great Her last last fever was around 7PM Pt noticed and insect bite in her left axilla area last night that look like a tick bite with erythema around it She said that she does not have any headache She said that she slept well last night She has been walking in the hallway with no distress Denies any chest pain, palpitation, dizziness and SOB Physical Exam Physical Exam: General- No acute distress Head- atraumatic Eyes- PERRL, EOMI, ENT- oropharynx clear Neck- supple, no JVD Lungs- clear to auscultation Heart- regular rhythm; no murmur Abdomen- normal bowel sounds, soft, nontender Extremities- no calf tenderness, redness around the left axilla area looks like a tick bite Neuro- alert, oriented x 3; PERRL, EOMI; no facial palsy; no dysarthria Skin- warm & dry Results & Data Results & Data ([facility]) Vital Signs (Past 12 Hours) Vital Signs Temp Pulse Pulse Resp BP Pulse Ox 11/30/20 15:27 36.9 C 73 20 146/87 H 97 11/30/20 14:52 77 11/30/20 08:23 36.7 C 72 18 118/87 96 (1) Back pain Back pain laterality: bilateral Back pain location: low back pain Chronicity: acute Sciatica presence: without sciatica Qualified Code(s): M54.5 - Low back pain
--- NOTE | 2020-12-09 07:55 | Discharge Summary ---
Date of Service November 30, 2020 Admission HPI Per Admitting Provider This is a very active 55-year-old otherwise healthy female who presents to ER secondary to fever and ill feeling x4 days. Approximately 4 days ago she started feeling ill, myalgias, chills and sweats. She is very active and fishes a lot with her . On she was out fishing when she began feeling unwell and retreated to home. When she woke up on Sunday she felt half decent so they went back out fishing and fci through her day again she felt ill, myalgias, chills, sweats and headache. When she woke up on Sunday she decided to take her temperature which was 102. Over the past 24 hours she has had temperatures fluctuate between 102 and 104. She has tried Tylenol which alleviates a temperature to 100. Currently she does complain of a dull right- sided frontal headache. She denies any phonophobia or photophobia. She does have a past history of migraines prior to menopause. This does not feel significant like that. She also complains of mild neck stiffness but is able to have active range of motion of neck. She denies any sick contacts. Any new or upper respiratory symptoms including stuffy nose, runny nose, cough, hemoptysis, chest pain, shortness of breath, nausea, vomiting, abdominal pain, dysuria, increased urgency or frequency with urination, hematuria or diarrhea. She denies any known tick bites or rashes. She is very active and is outdoors. Overall her appetite has been normal and she is currently requesting something to eat. She feels her headache is likely related to not having any caffeine all day as she is a heavy coffee drinker. She also complains of low back pain, middle of her low back to the right that is constant. She has had this pain off and on for many years but has gotten worse since feeling sick. In ED she remained hemodynamically stable with a febrile at 39.4. Her CBC was generally unremarkable except for mild leukopenia at 4.58k. Her CMP was unremarkable. Urinalysis was not consistent with infection. Lyme and Covid screen was n egative. Anaplasma still pending. Chest x-ray was negative for acute abnormality.CT abdomen pelvis revealed hepatic steatosis but otherwise no acute abnormality. She did receive 2 g of IV Rocephin empirically in ED. Admission Exam Per Admitting Provider Constitutional: WD/WN, appears acutely ill but nontoxic, vitals as above, NAD, sitting up in bed, pleasant, conversing easily Head: Normocephalic, Atraumatic, active range of motion to neck, negative Kernig's and negative Brudzinski's Eyes: PERRL, conjunctivae normal, anicteric sclerae ENMT: external ear and nose normal, oropharynx normal Neck: trachea midline, no thyromegaly normal visual inspection Respiratory: normal respiratory effort, lungs clear to auscultation, no wheeze, rales, rhonchi. Normal insp/exp effort, no accessory muscle use Cardiovascular: RRR, no murmur, no edema Vessels: no JVD or carotid bruit Chest: normal inspection of chest Abdomen: normal bowel sounds, soft, nontender, no hepatosplenomegaly Musculoskeletal: no cyanosis or clubbing, extremities motor strength 5/5 Skin: no rashes, warm and dry normal turgor Neurologic: PERRL, EOMI, accommodation nl, no face palsy, no dysarthria CN's II-XI intact bilaterally and moves all extremities Psychiatric: A+Ox3, euthymic affect Lymphatic: no cervical or axillary lymphadenopathy : deferred Principal Diagnosis Febrile illness Back pain Discharge Exam General- No acute distress Head- atraumatic Eyes- PERRL, EOMI, ENT- oropharynx clear Neck- supple, no JVD Lungs- clear to auscultation Heart- regular rhythm; no murmur Abdomen- normal bowel sounds, soft, nontender Extremities- no calf tenderness, redness around the left axilla area looks like a tick bite Neuro- alert, oriented x 3; PERRL, EOMI; no facial palsy; no dysarthria Skin- warm & dry Discharge Data Allergies Allergy/AdvReac Type Severity Reaction Status Date / Time No Known Allergies Allergy Verified 11/28/20 16:40 Consultations 11/28/20 17:34 ED Decision to Admit Stat Ordered Studies 11/28/20 16:22 CT abd pelvis wo con Stat CT OF THE ABDOMEN AND PELVIS WITHOUT CONTRAST CLINICAL HISTORY: back pain, fever COMPARISON STUDY: CT of the abdomen and pelvis May 18, 2015. Pelvic ultrasound May 04, 2020. TECHNIQUE: Axial images of the abdomen and pelvis were obtained without IV contrast. Images were reviewed in the axial, sagittal, and coronal planes. Automated exposure control was utilized for the study. A dose lowering technique was utilized adhering to the principles of ALARA. FINDINGS: Lung bases are unremarkable. No renal, ureteral or bladder calculi are present. No hydronephrosis or hydroureter. Size of the spleen is at the upper limits of normal. Evaluation of the remainder of the abdomen and pelvis is suboptimal as unenhanced examination. Hepatic steatosis is noted. A right hepatic lobe hemangioma is similar to CT of May 2015. This is benign. There is no biliary or pancreatic ductal dilatation. There is no peripancreatic or pericholecystic infiltration. No acute fracture is identified within visualized skeletal structures. There is no evidence for acute appendicitis. There is trace fluid within the pelvis. No abscess is present. There is no lymphadenopathy. IMPRESSION: 1. No urinary calculi or hydronephrosis. 2. No acute process within the abdomen or pelvis on unenhanced exam. 3. Hepatic steatosis. ACT 112: Negative or not required by law. Electronically signed by: Heladio Kaur M.D. 11/28/2020 4:55 PM Dictated: 11/28/20 1649Transcribed: 11/28/201648 XR chest 1V portable CLINICAL HISTORY: SEPSIS COMPARISON STUDY: No previous studies for comparison. FINDINGS: Lung volumes are normal. Lungs are clear. There is no pneumothorax or pleural effusion. Cardiac size is normal. Mediastinal contours are normal. There is no evidence for pulmonary edema. IMPRESSION: No acute cardiopulmonary findings. ACT 112: Negative or not required by law. Electronically signed by: Heladio Kaur M.D. 11/28/2020 3:51 PM Dictated: 11/28/20 1551Transcribed: 11/28/20 155 Hospital Course (1) Febrile illness, acute: (2) Back pain: This is a 55-year-old otherwise healthy and active female who presents to ER for evaluation secondary to fever and ill feeling x4 days. Mostly due to insect (tick) bite because she has redness around her L axilla area that looks like tick bites Temp Max 39.4 on admission WBC 4.58K on admission CXR negative and UA negative Blood cx no growth preliminary Peripheral smear showed no evidence of anaplasmosis Anaplasmosis PCR pending Lyme titer negative Blood cx negative Currently on IV Rocephin and PO doxycycline back pain resolved Will continue treat for anaplasmosis pathogen due to possible insect bite seen in L axilla area Will complete 10 days course of Doxycycline If pt remains afebrile for 24 hrs, will discharge home later DVT ppx: Lovenox DISPO Possible discharge home later Total Time Total Time Spent Total Time Spent (In Minutes): 35 minutes Discharge Plan Discharge Items Patient Disposition: Home - Self-Care Reason For Visit: FEVER Discharge Diagnosis: Febrile illness Back pain Activity: Resume your previous activity Non-emergency contact: Primary Care Provider Call non-emergency contact if: you have any medication questions and your temperature is above 101 Follow-up/Referrals: Anish Ricardo MD [Primary Care Provider] - (Date & Time 12/06/2020 11:20 AM Provider Anish Ricardo MD Department [facility] ) Diet: Low Sodium (2gm) Addtl Attending Provider Instructions: Follow up with your primary care provider Dr. Ricardo on 12/06/2020 @ 11:20 AM at the [facility] Seek medical attention if symptoms reoccur Complete the course of Doxycycline Pending Studies at Discharge: Yes Stand-Alone Forms: My [employer], Smoking Cessation Medications and DC Order Prescriptions: Continued furosemide 20 mg Tablet 20 mg PO QAM PRN (Reason: Edema) RF: 0 multivitamin Tablet 1 tab PO QAM RF: 0 Discharge Orders: Discharge Order (Routine); Ordered 11/30/20 Ordered By: Raymon Gaona Admission Data Admit Date/Time: 11/28/20 17:44 Attending Provider: Raymon Gaona Admit Provider: Raymon Gaona Primary Care Provider: Anish Ricardo Other Providers: Raymon Gaona Other Interventions: Discharge Summary Assessment (RN) Last Done: 11/30/20 18:08
== END 2020-11-30 18:29 | disposition home or self-care (01) ==
LOC: ED 14:09 → 2N 14:09
DX: M54.9 Dorsalgia, unspecified; Z79.899 Other long term (current) drug therapy; Z20.822 Contact with and (suspected) exposure to COVID-19; R50.9 Fever, unspecified